=== PATIENT | male | born 1960 | race Caucasian/White ===

== ENCOUNTER 2017-01-25 16:56 | Emergency (ER) | payer OTHER ==
[~2017-01-25] VITALS: Ht 188 cm; Wt 82.9 kg
[~2017-01-25 16:56] MED LIST: DAILY VITE1 EAC1 PO; FLEXERIL10 MG PO; LANTUS 10100 UNITS/ SC; LANTUS 3 M100 UNITS1 SC; LANTUS100 UNIT/1; LISINOPRIL40 MG PO; METFORMIN HCL1000 MG PO; NORCO 5/3251 TABLET PO; OXYCODONE HCL30 MG PO; PEPCID20 MG PO; PEPCID40 MG PO; PERCOCET 5/31 TABLET PO; PRAVACHOL10 MG PO; PRAVASTATIN SOD10 MG; PRINIVIL5 MG; SKELAXIN800 MG PO; VICODIN 5-3001 EACH PO
[2017-01-25] MEDS ORDERED: PERCOCET 10/1 TABLET PO (18:23)
[2017-01-25] MEDS ORDERED: GABAPENTIN400 MG PO (18:29)
[2017-01-25 18:41] VITALS: BP 109/62
== END 2017-01-25 18:43 | disposition home or self-care (01) ==
LOC: EME 16:56
DX: G62.9 Polyneuropathy, unspecified (principal); G89.29 Other chronic pain; E11.9 Type 2 diabetes mellitus without complications; E78.5 Hyperlipidemia, unspecified; I10 Essential (primary) hypertension; Z79.4 Long term (current) use of insulin; Z79.84 Long term (current) use of oral hypoglycemic drugs; F17.200 Nicotine dependence, unspecified, uncomplicated
CPT/HCPCS: 99281; 99284